=== PATIENT | female | born 1960 | race Caucasian/White ===

== ENCOUNTER 2016-12-03 11:31 | Day surgery (SDC) | payer MEDICAID ==
[~2016-12-03] VITALS: Ht 177.8 cm; Wt 97.5 kg
[~2016-12-03 11:31] MED LIST: HYDR-519 PO; IBUP-2030 PO; MULT-1116 PO; PARO10TA87 PO
[2016-12-03 12:27] LABS: UCG SCREEN NEGATIVE
[2016-12-03] MEDS ORDERED: LACTATED RINGERS 1,000 ML IV SCH (12:45)
[2016-12-03] MEDS ORDERED: DEXAMETHASONE 4MG/ML 1ML VIAL ONE ×2 (12:46→14:56)
[2016-12-03] MEDS ORDERED: GENTAMICIN SULF 40MG/ML 2ML VIAL ONE (12:47)
[2016-12-03] MEDS ORDERED: LIDOCAINE HCL 1% 20ML VIAL (Pyxis) INJ ONE ×2 (12:47→14:46)
[2016-12-03] MEDS ORDERED: BUPIVACAINE HCL/PF 0.5% (5MG/ML) 10ML ONE (12:47)
[2016-12-03] MEDS ORDERED: NORMAL SALINE 0.9% 10 ML SYR ONE (12:47)
[2016-12-03] MEDS ORDERED: BACITRACIN 50,000 UNITS/VIAL ONE (12:48)
[2016-12-03] MEDS ORDERED: TRIAMCINOLONE ACETONIDE 40MG/ML 1ML VIAL ONE (13:04)
[2016-12-03] MEDS ORDERED: MIDAZOLAM HCL 2 MG/2 ML VIAL ONE (14:43)
[2016-12-03] MEDS ORDERED: PROPOFOL 200MG/20ML VIAL IV ONE (14:46)
[2016-12-03] MEDS ORDERED: CEFAZOLIN SODIUM 1000MG/VIAL ONE (14:51)
[2016-12-03] MEDS ORDERED: FENTANYL CITRATE/PF 50MCG/ML 2ML VIAL ONE (14:53)
[2016-12-03] MEDS ORDERED: ONDANSETRON HCL 4MG/2ML VIAL ONE (14:57)
[2016-12-03] MEDS ORDERED: EPHEDRINE SULFATE 50MG/ML VIAL ONE (15:19)
[2016-12-03] MEDS ORDERED: SODIUM CHLORIDE 0.9% 1,000 ML IV SCH (15:28)
[2016-12-03] MEDS ORDERED: ONDANSETRON HCL 4MG/2ML VIAL IV PRN (15:30)
[2016-12-03] MEDS ORDERED: HYDROMORPHONE HCL/PF 2MG/ML CPJ IV PRN (15:30)
== END 2016-12-03 18:15 | disposition home or self-care (01) ==
LOC: OR 11:31
PROVIDERS: ATTEND Podiatrist Foot & Ankle Surgery
DX: M21.612 Bunion of left foot (principal); M19.072 Primary osteoarthritis, left ankle and foot; E66.8 Other obesity; B19.20 Unspecified viral hepatitis C without hepatic coma; K21.9 Gastro-esophageal reflux disease without esophagitis; Z87.442 Personal history of urinary calculi; Z98.890 Other specified postprocedural states; Z88.5 Allergy status to narcotic agent
CPT/HCPCS: 28080; 28296; 73620; 73630; 81025; J0171; J0690; J1100; J1580; J2250; J2405; J3010; J3301; J3490; J7120; 88311; A4216; J2704